=== PATIENT | female | born 1980 | race Caucasian/White ===

== ENCOUNTER → 2017-07-03 | Outpatient (CLI) | payer OTHER ==
[~2017-07-03] MED LIST: BUPR100T6 PO; VENL75CA PO
--- NOTE | 2017-07-03 13:06 | RAD ---
DATE: 07/03/2017 EXAM: DIGITAL DIAGNOSTIC BILATERAL, BREAST LEFT HISTORY: Left breast thickening COMPARISON: Baseline study This study was interpreted with the benefit of Computerized Aided Detection (CAD). The breast parenchyma is heterogeneously dense, which could reduce sensitivity of mammography. Breast parenchyma level C. FINDINGS: A BB was placed on the skin over the area of reported palpable concern in the superior aspect of the left breast. The fibroglandular tissues in the retroareolar regions of both breasts are heterogeneously dense. The breasts are slightly asymmetric with increased fibroglandular density superiorly on the left and laterally on the right. No discrete breast mass is seen. Several small scattered microcalcifications are noted. The distribution suggests a benign etiology. No suspicious microcalcifications are evident. Left breast ultrasound, 07/03/2017: A targeted ultrasound exam of the superior aspect of the left breast was performed in the area of palpable concern. Heterogeneous fibroglandular shadows are present. No discrete breast mass is seen. IMPRESSION: 1. Mild breast asymmetry as described above probably represents a normal fibroglandular variant in this patient. Given the patient's breast density and strong family history, breast MRI may be useful for further evaluation. 2. The targeted ultrasound exam of the left breast reveals no abnormality. BI-RADS CATEGORY: 0 INCOMPLETE: NEEDS ADDITIONAL IMAGING EVALUATION AND/OR PRIOR MAMMOGRAMS FOR COMPARISON. RECOMMENDED FOLLOW-UP: ADD ADDITIONAL IMAGING PQRS compliance statement: Patient information was entered into a reminder system with a target due date for the next mammogram. Mammography is a sensitive method for finding small breast cancers, but it does not detect them all and is not a substitute for careful clinical examination. A negative mammogram does not negate a clinically suspicious finding and should not result in delay in biopsying a clinically suspicious abnormality. "Our facility is accredited by the [employer] Mammography Program."
== END | disposition home or self-care (01) ==
LOC: MAMMO 10:07
PROVIDERS: ATTEND Nurse Practitioner Family
DX: N64.4 Mastodynia (principal); N64.89 Other specified disorders of breast; N64.59 Other signs and symptoms in breast
CPT/HCPCS: 76641; G0204; 77066

== ENCOUNTER 2017-12-24 21:19 | Emergency (ER) | payer OTHER ==
[~2017-12-24] VITALS: Ht 160 cm; Wt 63.3 kg
--- NOTE | 2017-12-24 21:33 | ED.ADGEN ---
Adult General Chief Complaint Chief Complaint ".. I got a headache... I ve had it a couple days...Maybe it a migraine..." HPI HPI Patient is a 37 year old female who presents with above hx and complaints of a generalized headache that is distributed over the right side of her scalp and forehead. Scalp is tender to palpation. Pt. complaints of pain in Rt. ear and teeth in 31 area. No Trismus. No recent travel. No specific ill contacts. No history of trauma. Patient does have a history of anxiety and ADHD. Patient normally follows at [facility] for her care. Review of Systems Review of Systems Constitutional: No fever or chills Eyes: Denies change in visual acuity, redness, or eye pain [] HENT: Denies nasal congestion or sore throat []Dental pain Respiratory: Denies cough or shortness of breath [] Cardiovascular: No additional information not addressed in HPI [] GI: Denies abdominal pain, nausea, vomiting, bloody stools or diarrhea [] : Denies dysuria or hematuria [] Musculoskeletal: Denies back pain or joint pain [] Integument: Denies rash or skin lesions [] Neurologic: Complaints of headache, denies, focal weakness or sensory changes [ ] Endocrine: Denies polyuria or polydipsia [] All other systems were reviewed and found to be within normal limits, except as documented in this note. Family History Family History Noncontributory Current Medications Current Medications Current Medications Medications (Trade) Dose Ordered Sig/Zoran Start Time Stop Time Status Last Admin Dose Admin Ketorolac Tromethamine (Toradol) 30 mg 1X ONCE 12/25/17 02:00 12/25/17 02:12 DC 12/25/17 01:30 30 MG Lactated Ringer's 1,000 ml @ 1,000 mls/hr 1X ONCE 12/24/17 22:15 12/24/17 23:14 DC 12/24/17 23:29 1,000 MLS/HR Ondansetron HCl (Zofran Odt) 8 mg 1X ONCE 12/24/17 22:30 12/24/17 22:31 DC 12/24/17 23:31 8 MG Oxycodone/ Acetaminophen (Percocet 10/325) 1 tab 1X ONCE 12/24/17 22:30 12/24/17 22:31 DC 12/24/17 23:32 1 TAB Sodium Chloride 50 ml @ As Directed STK-MED ONCE 12/25/17 00:10 12/25/17 00:11 DC Sumatriptan Succinate (Imitrex) 6 mg 1X ONCE 12/24/17 22:45 12/24/17 22:46 DC 12/24/17 23:32 6 MG Valproic Acid (Depacon) 500 mg STK-MED ONCE 12/25/17 00:10 12/25/17 00:11 DC Valproic Acid 500 mg/Sodium Chloride 55 ml @ 55 mls/hr 1X ONCE 12/25/17 00:00 12/25/17 00:59 DC 12/25/17 00:16 55 MLS/HR See Nursing for home meds. Allergies Allergies Allergies Coded Allergies Type Severity Reaction Last Updated Verified No Known Drug Allergies 08/31/15 No Physical Exam Physical Exam Constitutional: Well developed, well nourished, no acute distress, non-toxic appearance. [] HENT: Normocephalic, atraumatic, bilateral external ears normal, oropharynx moist, no oral exudates, nose normal. []Scalp tender to palpation. No Temporal artery tenderness. TM clear. Some tenderness with percussion of trigminal area on right. Eyes: PERRLA, EOMI, conjunctiva normal, no discharge. [] Neck: Normal range of motion, no tenderness, supple, no stridor. [] Cardiovascular:Heart rate regular rhythm, no murmur [] Lungs & Thorax: Bilateral breath sounds clear to auscultation [] Abdomen: Bowel sounds normal, soft, no tenderness, no masses, no pulsatile masses. [] Skin: Warm, dry, no erythema, no rash. [] Back: No tenderness, no CVA tenderness. [] Extremities: No tenderness, no cyanosis, no clubbing, ROM intact, no edema. [] Neurologic: Alert and oriented X 3, normal motor function, normal sensory function, no focal deficits noted. []DTR + 2 patella and brachial. Distal Vib. intact. No drift. [place] equal. Rt. hand dominate. Psychologic: Affect anxious, judgement normal, mood normal. [] Current Patient Data Lab Results Laboratory Tests Test 12/24/17 22:19 12/24/17 22:23 12/24/17 23:20 Urine Collection Type Unknown Urine Color Straw Urine Clarity Clear Urine pH 5.5 Urine Specific [place] <=1.005 Urine Protein Neg (NEG-TRACE) Urine Glucose (UA) Neg mg/dL (NEG) Urine Ketones (Stick) Neg mg/dL (NEG) Urine Blood Small (NEG) Urine Nitrite Neg (NEG) Urine Bilirubin Neg (NEG) Urine Urobilinogen Dipstick 0.2 mg/dL (0.2 mg/dL) Urine Leukocyte Esterase Neg (NEG) Urine RBC Rare /HPF (0-2) Urine WBC 1-4 /HPF (0-4) Urine Squamous Epithelial Cells Mod /LPF Urine Bacteria Mod /HPF (0-FEW) Urine Opiates Screen Neg (NEG) Urine Methadone Screen Neg (NEG) Urine Barbiturates Neg (NEG) Urine Phencyclidine Screen Neg (NEG) Urine Amphetamine/Methamphetamine Neg (NEG) Urine Benzodiazepines Screen Neg (NEG) Urine Cocaine Screen Neg (NEG) Urine Cannabinoids Screen Neg (NEG) Urine Ethyl Alcohol Pos (NEG) POC Urine HCG, Qualitative hcg negative (Negative) White Blood Count 6.9 x10^3/uL (4.0-11.0) Red Blood Count 3.99 x10^6/uL (3.50-5.40) Hemoglobin 12.7 g/dL (12.0-15.5) Hematocrit 36.7 % (36.0-47.0) Mean Corpuscular Volume 92 fL (79-100) Mean Corpuscular Hemoglobin 32 pg (25-35) Mean Corpuscular Hemoglobin Concent 35 g/dL (31-37) Red Cell Distribution Width 12.5 % (11.5-14.5) Platelet Count 222 x10^3/uL (140-400) Neutrophils (%) (Auto) 53 % (31-73) Lymphocytes (%) (Auto) 36 % (24-48) Monocytes (%) (Auto) 8 % (0-9) Eosinophils (%) (Auto) 3 % (0-3) Basophils (%) (Auto) 1 % (0-3) Neutrophils # (Auto) 3.7 x10^3uL (1.8-7.7) Lymphocytes # (Auto) 2.5 x10^3/uL (1.0-4.8) Monocytes # (Auto) 0.5 x10^3/uL (0.0-1.1) Eosinophils # (Auto) 0.2 x10^3/uL (0.0-0.7) Basophils # (Auto) 0.1 x10^3/uL (0.0-0.2) Erythrocyte Sedimentation Rate 1 (0-25) Prothrombin Time 10.8 SEC (9.4-11.4) Prothrombin Time INR 1.1 (0.9-1.1) PTT 25 SEC (23-33) Sodium Level 141 mmol/L (136-145) Potassium Level 3.6 mmol/L (3.5-5.1) Chloride Level 105 mmol/L (98-107) Carbon Dioxide Level 26 mmol/L (21-32) Anion Gap 10 (6-14) Blood Urea Nitrogen 13 mg/dL (7-20) Creatinine 0.7 mg/dL (0.6-1.0) Estimated GFR (Cockcroft-Gault) 94.7 Glucose Level 103 mg/dL (70-99) H Calcium Level 8.5 mg/dL (8.5-10.1) Magnesium Level 1.8 mg/dL (1.8-2.4) Creatine Kinase 67 U/L (26-192) Creatine Kinase MB (Mass) < 0.5 ng/mL (0.0-3.6) Creatine Kinase MB Relative Index 0.7 % (0-4) Troponin I Quantitative < 0.017 ng/mL (0-0.055) C-Reactive Protein < 0.5 mg/L (0-3.3) EKG EKG [] Radiology/Procedures Radiology/Procedures My interpretation of CT shows no shift, mass, edema, bleed, or fracture[] Course & Med Decision Making Course & Med Decision Making Pertinent Labs and Imaging studies reviewed. (See chart for details) Pt. declines spinal tap at this time.. Exhibit UC[employer] capacity. Pt. to take meds as directed and follow up with primary. Return if any concerns. Zofran for nausea and vomiting. Take Tylenol and ibuprofen as needed for pain. May take Vicoprofen up to 4 times a day for marked pain. Must keep followup. Consider follow up with Dentist to rule out dental causes. ( Pt has scheduled root canal. ). Note pt. reports marked relief of pain at time of discharge. [] Final Impression Final Impression 1. Headache[] 2. Migraine Variant 3. Hx. Anxiety 4. Hx. ADHD 5. Possible trigeminal neuralgia 6. Dental pain Problems: Dragon Disclaimer Dragon Disclaimer This electronic medical record was generated, in whole or in part, using a voice recognition dictation system. ELAINE ENRIQUEZ MD Dec 24, 2017 21:33
[2017-12-24] MEDS ORDERED: IV RINGERS SOLUTION,LACTATED 1,000 ML IV ONE (22:15)
[2017-12-24] MEDS ORDERED: ONDANSETRON ODT 4 MG TAB.RAPDIS PO ONE (22:30)
[2017-12-24] MEDS ORDERED: oxyCODONE/APAP 10/325 1 TAB TABLET PO ONE (22:30)
[2017-12-24 22:42] LABS: BARBITURATES NEG (NEG); BENZODIAZEPINES NEG (NEG); CANNABINOIDS NEG (NEG); COCAINE NEG (NEG); METHADONE NEG (NEG); OPIATES NEG (NEG); PHENCYCLIDINE NEG (NEG)
--- NOTE | 2017-12-24 22:42 | RAD ---
CT head without contrast TECHNIQUE: [address] imaging skull base to vertex. HISTORY: Severe headache, nausea, photophobia. FINDINGS: No intracranial hemorrhage, mass, hydrocephalus or infarction. No acute ischemic changes. Streak artifact from the skull base may decrease sensitivity to detect pathology at the dariela and the brainstem. Orbits, mastoids, paranasal sinuses and bones are unremarkable. IMPRESSION: No acute intracranial CT abnormality. Exposure: One or more of the following individualized dose reduction techniques were utilized for this examination: 1. Automated exposure control 2. Adjustment of the mA and/or kV according to patient size 3. Use of iterative reconstruction technique Electronically signed by: Son Dumont MD (12/24/2017 10:39 PM) [facility]
[2017-12-24 22:43] LABS: AMPHETAMINE/METHAMPHETAMINE NEG (NEG)
[2017-12-24] MEDS ORDERED: SUMAtriptan. 6 MG/0.5 ML VIAL SQ ONE (22:45)
[2017-12-24 22:47] LABS: BACTERIA,URINE MOD /HPF (0-FEW); BILIRUBIN,URINE NEG (NEG); CLARITY,URINE CLEAR; COLOR,URINE STRAW; GLUCOSE,URINE NEG (NEG); NITRITE,URINE NEG (NEG); RBC,URINE RARE /HPF (0-2); SQUAMOUS EPITHELIAL CELL,UR MOD /LPF; UROBILINOGEN,URINE 0.2 mg/dL (0.2 mg/dL)
[2017-12-24 23:40] LABS: BASO # 0.1 x10^3/uL (0.0-0.2); BASO % 1 % (0-3); EOS # 0.2 x10^3/uL (0.0-0.7); EOS % 3 % (0-3); HEMATOCRIT 36.7 % (36.0-47.0); HEMOGLOBIN 12.7 g/dL (12.0-15.5); LYMPH # 2.5 x10^3/uL (1.0-4.8); LYMPH % 36 % (24-48); MEAN CORPUSCULAR HEMOGLOBIN 32 pg (25-35); MEAN CORPUSCULAR HGB CONC 35 g/dL (31-37); MEAN CORPUSCULAR VOLUME 92 fL (79-100); MONO # 0.5 x10^3/uL (0.0-1.1); MONO % 8 % (0-9); NEUT # 3.7 x10^3uL (1.8-7.7); NEUT % 53 % (31-73); PLATELET COUNT 222 x10^3/uL (140-400); RED BLOOD COUNT 3.99 x10^6/uL (3.50-5.40); RED CELL DISTRIBUTION WIDTH 12.5 % (11.5-14.5); WHITE BLOOD COUNT 6.9 x10^3/uL (4.0-11.0)
[2017-12-25] MEDS ORDERED: VALPROATE SODIUM 500 MG in IV NORMAL SALINE 50ML 50 ML IV ONE ×2
[2017-12-25 00:07] LABS: ANION GAP 10 (6-14); BLOOD UREA NITROGEN 13 mg/dL (7-20); CALCIUM 8.5 mg/dL (8.5-10.1); CARBON DIOXIDE 26 mmol/L (21-32); CHLORIDE 105 mmol/L (98-107); CREATINE KINASE 67 U/L (26-192); CREATININE 0.7 mg/dL (0.6-1.0); GFR 94.7; GLUCOSE 103 mg/dL (70-99); MAGNESIUM 1.8 mg/dL (1.8-2.4); POTASSIUM 3.6 mmol/L (3.5-5.1); SODIUM 141 mmol/L (136-145)
[2017-12-25] MEDS ORDERED: IV NORMAL SALINE 50ML 50 ML ONE (00:10)
[2017-12-25] MEDS ORDERED: VALPROATE SODIUM 500 MG/5 ML VIAL IV ONE (00:10)
[2017-12-25 00:12] LABS: C REACTIVE PROTEIN < 0.5 mg/L (0-3.3)
[2017-12-25 00:59] LABS: SEDIMENTATION RATE 1 (0-25)
[2017-12-25] MEDS ORDERED: ONDA8TAB12 PO (01:17)
[2017-12-25] MEDS ORDERED: HYDR-79 PO (01:17)
[2017-12-25 01:56] VITALS: BP 112/65
[2017-12-25] MEDS ORDERED: KETOROLAC 30 MG/ML VIAL. IV ONE (02:00)
== END 2017-12-25 01:58 | disposition home or self-care (01) ==
LOC: ER 21:19
DX: G43.809 Other migraine, not intractable, without status migrainosus (principal); K08.89 Other specified disorders of teeth and supporting structures; H92.01 Otalgia, right ear; F41.9 Anxiety disorder, unspecified; F90.9 Attention-deficit hyperactivity disorder, unspecified type
CPT/HCPCS: 36415; 70450; 80048; 80307; 81001; 81025; 82553; 83735; 84484; 85025; 85610; 85651; 85730; 86140; 87086; 96361; 96365; 96366; 96372; 96375; 99285; J1885; J3030; J3490; J7120; Q0162; G0479

== ENCOUNTER 2017-12-27 12:45 | Emergency (ER) | payer OTHER ==
[~2017-12-27] VITALS: Ht 160 cm; Wt 63.3 kg
[~2017-12-27 12:45] MED LIST changes: +HYDR-79 PO; +ONDA8TAB12 PO
[2017-12-27 12:55] VITALS: BP 112/65
[2017-12-27] MEDS ORDERED: IV NORMAL SALINE 1,000ML 1,000 ML IV SCH (13:32)
[2017-12-27] MEDS ORDERED: 0.9 % SODIUM CHLORIDE 10 ML DISP.SYRIN. IV PRN (13:45)
[2017-12-27] MEDS ORDERED: diphenhydrAMINE 50 MG/ML VIAL IVP ONE (14:00)
[2017-12-27] MEDS ORDERED: KETOROLAC 30 MG/ML VIAL. IV ONE (14:00)
[2017-12-27] MEDS ORDERED: ONDANSETRON PF 4 MG/2 ML VIAL. IV ONE (14:00)
[2017-12-27 14:01] LABS: BASO % 1 % (0-3); EOS # 0.1 x10^3/uL (0.0-0.7); EOS % 1 % (0-3); HEMATOCRIT 40.7 % (36.0-47.0); HEMOGLOBIN 14.1 g/dL (12.0-15.5); LYMPH # 1.6 x10^3/uL (1.0-4.8); LYMPH % 28 % (24-48); MEAN CORPUSCULAR HEMOGLOBIN 32 pg (25-35); MEAN CORPUSCULAR HGB CONC 35 g/dL (31-37); MEAN CORPUSCULAR VOLUME 92 fL (79-100); MONO # 0.4 x10^3/uL (0.0-1.1); MONO % 7 % (0-9); NEUT # 3.6 x10^3uL (1.8-7.7); NEUT % 63 % (31-73); PLATELET COUNT 213 x10^3/uL (140-400); RED BLOOD COUNT 4.43 x10^6/uL (3.50-5.40); RED CELL DISTRIBUTION WIDTH 12.1 % (11.5-14.5); WHITE BLOOD COUNT 5.7 x10^3/uL (4.0-11.0)
[2017-12-27 14:12] LABS: ALBUMIN 3.9 g/dL (3.4-5.0); ALBUMIN/GLOBULIN RATIO 1.3 (1.0-1.7); CALCIUM 9.3 mg/dL (8.5-10.1); CREATININE 0.8 mg/dL (0.6-1.0); GFR 81.2; POTASSIUM 3.9 mmol/L (3.5-5.1); TOTAL BILIRUBIN 0.5 mg/dL (0.2-1.0); TOTAL PROTEIN 6.9 g/dL (6.4-8.2)
[2017-12-27 14:12] LABS: BACTERIA,URINE 0 /HPF (0-FEW); BILIRUBIN,URINE NEG (NEG); CLARITY,URINE HAZY; COLOR,URINE STRAW; GLUCOSE,URINE NEG (NEG); NITRITE,URINE NEG (NEG); RBC,URINE 0 /HPF (0-2); SQUAMOUS EPITHELIAL CELL,UR FEW /LPF; UROBILINOGEN,URINE 0.2 mg/dL (0.2 mg/dL); WBC,URINE 0 /HPF (0-4)
[2017-12-27 14:31] LABS: INFLUENZA A PATIENT NEGATIVE (NEGATIVE); INFLUENZA B PATIENT NEGATIVE (NEGATIVE)
[2017-12-27] MEDS ORDERED: ONDA4TAB10 SL (14:57)
[2017-12-27] MEDS ORDERED: KETO10TA PO (14:57)
[2017-12-27] MEDS ORDERED: BUTA1CAP31 PO (14:57)
--- NOTE | 2017-12-27 14:57 | PHYS DOC ---
Past History Past Medical History: Anxiety, Other Past Surgical History: No Surgical History Alcohol Use: None Drug Use: None Adult General Chief Complaint Chief Complaint: HEADACHE HPI HPI 37-year-old female patient with history of anxiety with history of migraine headaches state she had cold sore in her nose that has 4-5 days ago and had bitemporal and frontal headache as a throbbing pain with photophobia and phonophobia and nausea without fever and chills, vomiting, focal neuro deficit. Patient complains of radiation of pain to her neck that getting worse with movement of her neck. Patient states she was seen in this emergency room 4 days ago and had unremarkable CT head and labs and discharged with diagnosis of migraine headaches with Percocet prescription but patient state her pain is getting worse. Patient denies cough and congestion, sore throat, URI symptoms, sick contact. Review of Systems Review of Systems Constitutional: Denies fever or chills [] Eyes: Denies change in visual acuity, redness, or eye pain [] HENT: Denies nasal congestion or sore throat [] Respiratory: Denies cough or shortness of breath [] Cardiovascular: No additional information not addressed in HPI [] GI: Denies abdominal pain, nausea, vomiting, bloody stools or diarrhea [] : Denies dysuria or hematuria [] Musculoskeletal: Denies back pain or joint pain [] Integument: Denies rash or skin lesions [] Neurologic: Denies focal weakness or sensory changes , reports headache[] Endocrine: Denies polyuria or polydipsia [] All other systems were reviewed and found to be within normal limits, except as documented in this note. Current Medications Current Medications Current Medications Medications (Trade) Dose Ordered Sig/Zoran Start Time Stop Time Status Last Admin Dose Admin Diphenhydramine HCl (Benadryl) 50 mg 1X ONCE 12/27/17 14:00 12/27/17 14:01 DC 12/27/17 13:58 50 MG Ketorolac Tromethamine (Toradol) 30 mg 1X ONCE 12/27/17 14:00 12/27/17 14:01 DC 12/27/17 13:57 30 MG Ondansetron HCl (Zofran) 4 mg 1X ONCE 12/27/17 14:00 12/27/17 14:01 DC 12/27/17 13:57 4 MG Sodium Chloride (Normal Saline Flush) 10 ml QSHIFT PRN 12/27/17 13:45 Allergies Allergies Allergies Coded Allergies Type Severity Reaction Last Updated Verified No Known Drug Allergies 08/31/15 No Physical Exam Physical Exam Constitutional: Well nourished, mild distress, non-toxic appearance, anxious. [] HENT: Normocephalic, atraumatic, bilateral external ears normal, oropharynx moist, no oral exudates, nose normal. [] Eyes: PERRLA, EOMI, conjunctiva normal, no discharge. [] Neck: Normal range of motion, no tenderness, supple, no stridor, no meningeal sign. [] Cardiovascular:Heart rate regular rhythm, no murmur [] Lungs & Thorax: Bilateral breath sounds clear to auscultation [] Abdomen: Bowel sounds normal, soft, no tenderness, no masses, no pulsatile masses. [] Skin: Warm, dry, no erythema, no rash. [] Back: No tenderness, no CVA tenderness. [] Extremities: No tenderness, no cyanosis, no clubbing, ROM intact, no edema. [] Neurologic: Alert and oriented X 3, normal motor function, normal sensory function, no focal deficits noted. [] Psychologic: Anxious, judgement normal, mood normal. [] Current Patient Data Vital Signs Vital Signs Date Time Temp Pulse Resp B/P (MAP) Pulse Ox O2 Delivery O2 Flow Rate FiO2 12/27/17 12:55 97.9 52 16 97 Room Air Lab Results Laboratory Tests Test 12/27/17 13:40 12/27/17 13:46 Urine Collection Type Unknown Urine Color Straw Urine Clarity Hazy Urine pH 7.5 Urine Specific [place] 1.010 Urine Protein Neg (NEG-TRACE) Urine Glucose (UA) Neg mg/dL (NEG) Urine Ketones (Stick) Neg mg/dL (NEG) Urine Blood Trace (NEG) Urine Nitrite Neg (NEG) Urine Bilirubin Neg (NEG) Urine Urobilinogen Dipstick 0.2 mg/dL (0.2 mg/dL) Urine Leukocyte Esterase Neg (NEG) Urine RBC 0 /HPF (0-2) Urine WBC 0 /HPF (0-4) Urine Squamous Epithelial Cells Few /LPF Urine Bacteria 0 /HPF (0-FEW) White Blood Count 5.7 x10^3/uL (4.0-11.0) Red Blood Count 4.43 x10^6/uL (3.50-5.40) Hemoglobin 14.1 g/dL (12.0-15.5) Hematocrit 40.7 % (36.0-47.0) Mean Corpuscular Volume 92 fL (79-100) Mean Corpuscular Hemoglobin 32 pg (25-35) Mean Corpuscular Hemoglobin Concent 35 g/dL (31-37) Red Cell Distribution Width 12.1 % (11.5-14.5) Platelet Count 213 x10^3/uL (140-400) Neutrophils (%) (Auto) 63 % (31-73) Lymphocytes (%) (Auto) 28 % (24-48) Monocytes (%) (Auto) 7 % (0-9) Eosinophils (%) (Auto) 1 % (0-3) Basophils (%) (Auto) 1 % (0-3) Neutrophils # (Auto) 3.6 x10^3uL (1.8-7.7) Lymphocytes # (Auto) 1.6 x10^3/uL (1.0-4.8) Monocytes # (Auto) 0.4 x10^3/uL (0.0-1.1) Eosinophils # (Auto) 0.1 x10^3/uL (0.0-0.7) Basophils # (Auto) 0.0 x10^3/uL (0.0-0.2) Sodium Level 142 mmol/L (136-145) Potassium Level 3.9 mmol/L (3.5-5.1) Chloride Level 106 mmol/L (98-107) Carbon Dioxide Level 31 mmol/L (21-32) Anion Gap 5 (6-14) L Blood Urea Nitrogen 10 mg/dL (7-20) Creatinine 0.8 mg/dL (0.6-1.0) Estimated GFR (Cockcroft-Gault) 81.2 BUN/Creatinine Ratio 13 (6-20) Glucose Level 92 mg/dL (70-99) Calcium Level 9.3 mg/dL (8.5-10.1) Total Bilirubin 0.5 mg/dL (0.2-1.0) Aspartate Amino Transferase (AST) 18 U/L (15-37) Alanine Aminotransferase (ALT) 23 U/L (14-59) Alkaline Phosphatase 50 U/L (46-116) Total Protein 6.9 g/dL (6.4-8.2) Albumin 3.9 g/dL (3.4-5.0) Albumin/Globulin Ratio 1.3 (1.0-1.7) Influenza Type A (Rapid) Negative (NEGATIVE) Influenza Type B (Rapid) Negative (NEGATIVE) EKG EKG [] Radiology/Procedures Radiology/Procedures [] Course & Med Decision Making Course & Med Decision Making Pertinent Labs reviewed. (See chart for details) Evaluation of patient in ER showed 37-year-old female patient for the second ER visit because of headache without history of migraine headache. Patient had unremarkable physical exam except for anxiety. Patient did not have meningeal sign. Labs was unremarkable. Patient did not have history of migraine headache and had unremarkable CT of head didn't previous visits. Patient did not want to have lumbar puncture for evaluation of possible viral meningitis or encephalitis and treated with IV fluid and Toradol and Benadryl and Zofran and felt better. Plan discharge patient home with prescription of Fioricet and Toradol and Zofran and instruction to follow with her primary care physician or return to ER if not getting better. Dragon Disclaimer Dragon Disclaimer This electronic medical record was generated, in whole or in part, using a voice recognition dictation system. Departure Departure: Impression: Primary Impression: Headache Additional Impressions: Photophobia Nausea Disposition: 01 HOME, SELF-CARE (at 1454) Condition: IMPROVED Referrals: NON,STAFF (PCP) Patient Instructions: General Headache Without Cause Additional Instructions: Drink plenty of liquids Follow-up with your primary care physician in 3-5 days Return to ER if not getting better Scripts Ketorolac Tromethamine (KETOROLAC TROMETHAMINE) 10 Mg Tablet 1 TAB PO TID, #15 TAB Prov: ESTRELLA LAY MD 12/27/17 Ondansetron (ZOFRAN ODT) 4 Mg Tab.rapdis 1 TAB SL Q8HRS, #15 TAB Prov: ESTRELLA LAY MD 12/27/17 Butalbital/Aspirin/Caffeine (FIORINAL 50-325-40 MG CAPSULE) 1 Each Capsule 1 EACH PO QID Y for HEADACHE, #20 CAP Prov: ESTRELLA LAY MD 12/27/17 Problem Qualifiers ESTRELLA LAY MD Dec 27, 2017 14:57
== END 2017-12-27 15:26 | disposition home or self-care (01) ==
LOC: ER 12:45
DX: R51 Headache (principal); R11.0 Nausea; H53.143 Visual discomfort, bilateral; F41.9 Anxiety disorder, unspecified; G43.909 Migraine, unspecified, not intractable, without status migrainosus
CPT/HCPCS: 36415; 80053; 81001; 85025; 87804; 96361; 96374; 96375; 99284; J1200; J1885; J2405; J7030